=== PATIENT | female | born 1965 | race Asian ===

== ENCOUNTER 2019-03-17 04:24 | Inpatient (IN) | payer BC ==
[~2019-03-17] VITALS: Ht 160 cm; Wt 65.5 kg
[2019-03-17] MEDS ORDERED: SODIUM CHLORIDE 0.9% 1,000 ML IV ONE ×2 (05:30→08:00)
[2019-03-17] MEDS ORDERED: METOPROLOL TARTRATE 1MG/1ML-5ML VIAL IV ONE ×2 (06:15→08:15)
[2019-03-17 07:55] LABS: Basophils # (auto) 0 uL; Basophils % (auto) 0.9 % (0.0-2.0); Eosinophils # (auto) 0.2 uL; Eosinophils % (auto) 3.6 % (0.0-7.0); Hematocrit 40.3 % (36.0-46.0); Hemoglobin 13.3 g/dL (12.2-16.2); Lymphocytes # (auto) 1.9 uL; Lymphocytes % (auto) 34.3 % (10.0-50.0); Mean Corpuscular Hemoglobin 29.4 pg (28.0-32.0); Mean Corpuscular Hgb Conc. 33.2 g/dL (32.0-36.0); Mean Corpuscular Volume 88.7 fL (80.0-100.0); Monocytes # (auto) 0.4 uL; Monocytes % (auto) 7.2 % (0.0-12.0); Neutrophils # (auto) 3.1 uL; Nucleated Red Blood Cells % 0.1 %; Platelet Count (auto) 221 10^3/uL (140-450); Red Blood Cells 4.54 10^6/uL (4.0-5.20); Red Cell Distribution Width 13.1 % (11.8-14.3); White Blood Cell 5.7 10^3/uL (4.4-10.8)
[2019-03-17 07:59] LABS: INR 0.94 (0.9-1.15); Partial Thromboplastin Time 27.3 sec (23.64-32.05)
[2019-03-17 08:05] LABS: Albumin 3.6 g/dL (3.4-5.0); Calcium 8.4 mg/dL (8.5-10.1); Magnesium 2.4 mg/dL (1.6-2.6)
[2019-03-17 08:10] LABS: BUN/Creatinine Ratio 24.6; Bilirubin, Total 0.4 mg/dL (0.2-1.0); Total Protein 6.9 g/dL (6.4-8.2)
[2019-03-17] MEDS ORDERED: METOPROLOL TARTRATE 50 MG TAB PO ONE (08:30)
[2019-03-17] MEDS ORDERED: ASPirin 81 mg TAB PO ONE (09:30)
[2019-03-17] MEDS ORDERED: DILTIAZEM 125mg/125ml BAG KIT 125 ML IV SCH (09:30)
[2019-03-17] MEDS ORDERED: MORPHINE SULF INJ 2 MG/ML SYRINGE 1ML IV PRN ×2 (09:30)
[2019-03-17] MEDS ORDERED: HYDROcodone-ACET 5/325MG TAB PO PRN (09:30)
[2019-03-17] MEDS ORDERED: NITROGLYCERIN 0.4 MG SL TAB SL PRN (09:30)
[2019-03-17] MEDS ORDERED: ONDANSETRON HCL 4 MG/2 ML VIAL IV PRN (09:30)
[2019-03-17] MEDS ORDERED: ACETAMINOPHEN 500 MG TAB PO PRN (09:30)
[2019-03-17] MEDS: FAMOTIDINE 20 MG TAB PO SCH (09:50)
--- NOTE | 2019-03-17 11:45 | NUR ---
Admit to [facility] BENAVIDES admitted to [facility] via gurney on boiling tub operator, and patient is room air. Patient transferred to bed, connected to unit monitoring, and weighed by bedscale. Patient oriented to LATOSHA MARTINEZ RN primary RN, unit, room, bed, and unit policies regarding patient care and visiting hours. All questions and concerns addressed, patient verbalized understanding. Assessment done: vital sign : BP 107/71 mmHg, HR 56 with sinus bradycardia, room air O2 saturation 95-96%, skin intact, dry and warm to touch. IV at the left wrist.
[2019-03-17 11:55] VITALS: BP 107/71
[2019-03-17 12:00] VITALS: BP 107/71
--- NOTE | 2019-03-17 12:20 | NUR ---
Dr. Rodrigues at the bedside, seen and examined patient at this time, plan of care discussed with patient and her , they agreed with the plan, MD recommends to continue monitoring in the hospital, able to transfer to Tele, continue Metoprolol 12.5 mg oral BID, patient made aware. recommends EP and RF ablation with Dr. Rand at [facility], patient and his made aware, will continue to monitor and care.
--- NOTE | 2019-03-17 13:25 | NUR ---
Patient had 100 % of Lunch, no N/V noted.
--- NOTE | 2019-03-17 13:59 | NUR ---
Provided the information about SVT and cardiac ablation to patient and her .
--- NOTE | 2019-03-17 14:15 | NUR ---
RECEIVED REPORT FROM [facility] NURSE WILL WAIT PATIENT.
--- NOTE | 2019-03-17 14:15 | NUR ---
Called and give a report to Vicki JAVIER
--- NOTE | 2019-03-17 14:20 | NUR ---
Patient transferred to room 240B via wheelchair and connected to Tele no 5. Her taking her belonging with him.
--- NOTE | 2019-03-17 14:34 | NUR ---
RECEIVED PATIENT TO FLOOR AMBULATORY AWAKE ALERT AND ORIENTED X4 NO SIGNS AND SYMPTOMS OF DISTRESS NOTED. INSTRUCTED PATIENT ON THE PLAN OF CARE AND TO CALL IF ANYTHING IS NEEDED. WILL CONTINUE TO MONITOR Q HOURLY AND NEEDED.
[2019-03-17 17:00] VITALS: BP 102/63
--- NOTE | 2019-03-17 19:35 | NUR ---
Opening Shift Note Assumed care of patient, awake and alert. No S/S of distress/SOB or pain. Bed locked in lowest position, side rails upx2, call light within reach. Instructed on POC and to call for assist PRN, will continue to monitor for changes Q1hr and PRN.
[2019-03-17] MEDS: METOPROLOL TARTRATE 25 MG TAB PO SCH (22:00)
[2019-03-17] MEDS ORDERED: METOPROLOL TARTRATE 25 MG TAB PO SCH (22:00)
[2019-03-17 22:55] VITALS: BP 108/66
[2019-03-18 05:17] VITALS: BP 97/53
[2019-03-18 07:03] LABS: Basophils # (auto) 0 uL; Basophils % (auto) 1.1 % (0.0-2.0); Eosinophils # (auto) 0.2 uL; Eosinophils % (auto) 5.2 % (0.0-7.0); Hematocrit 35.9 % (36.0-46.0); Hemoglobin 11.9 g/dL (12.2-16.2); Lymphocytes # (auto) 1.8 uL; Lymphocytes % (auto) 43.6 % (10.0-50.0); Mean Corpuscular Hemoglobin 29.3 pg (28.0-32.0); Mean Corpuscular Hgb Conc. 33.1 g/dL (32.0-36.0); Mean Corpuscular Volume 88.4 fL (80.0-100.0); Monocytes # (auto) 0.3 uL; Monocytes % (auto) 8.5 % (0.0-12.0); Neutrophils # (auto) 1.7 uL; Neutrophils % (auto) 41.6 % (37.0-80.0); Nucleated Red Blood Cells % 0.1 %; Platelet Count (auto) 182 10^3/uL (140-450); Red Blood Cells 4.06 10^6/uL (4.0-5.20); Red Cell Distribution Width 12.7 % (11.8-14.3)
[2019-03-18 07:31] LABS: Calcium 8.7 mg/dL (8.5-10.1); Potassium 3.9 mmol/L (3.5-5.1)
[2019-03-18 07:33] LABS: BUN/Creatinine Ratio 23.6
[2019-03-18] MEDS: METOPROLOL TARTRATE 25 MG TAB PO SCH (09:29)
[2019-03-18] MEDS: FAMOTIDINE 20 MG TAB PO SCH (09:29)
[2019-03-18 10:00] VITALS: BP 126/67
[2019-03-18] MEDS ORDERED: ASPirin 81 mg TAB PO SCH (10:00)
--- NOTE | 2019-03-18 13:00 | NUR ---
PT SEEN BY DR. ARMAS PER DR. ARMAS HE SPOKE WITH DR. PACHECO PT IS CLEARED FOR DISCHARGE.
--- NOTE | 2019-03-18 13:30 | NUR ---
PER DR. ARMAS, IF PATIENT EXPERIENCES PALPITATIONS, PATIENT CAN TAKE 1 MORE OF 1/2 TAB METOPROLOL 12.5 MG. WILL INFORM DEONTE ELIAS WHEN SHE COMES BACK AFTER LUNCH.
[2019-03-18 13:41] VITALS: BP 117/35
[2019-03-18 14:20] VITALS: BP 126/67
--- NOTE | 2019-03-18 15:00 | NUR ---
PT INSTRUCTED TO TAKE ANOTHER 1/2 OF METOPROLOL PILL IF SHE EXPERIENCE PALPITATIONS, PT VERBALIZED UNDERSTANDING.
--- NOTE | 2019-03-18 15:45 | NUR ---
CALLED DR. PACHECO'S OFFICE, THEY WILL NOT TAKE PT'S INSURANCE, PT CAN FOLLOW UP AND WILL PAY OUT OF POCKET, PT MADE AWARE AND WILL CALL FOR HER APPOINTMENT.
--- NOTE | 2019-03-18 15:50 | NUR ---
Discharge instructions given as ordered. Encourage to follow up with PCP DR. BUSCH IN 1 WEEK IN [facility], PT STATED SHE WILL MAKE HER OWN APPOINTMENT as instructed. All questions and concerns addressed. Patient verbalized understanding. Medication reconciliation form completed and copy given to patient. IV removed with catheter intact, pressure dressing applied. Telemetry unit returned to ICU. Patient taken to vehicle via wheelchair with all personal belongings, accompanied by staff and family member. No distress noted at time of departure.
[2019-03-18] MEDS ORDERED: METOPROLOL TARTRATE 25 MG TAB PO SCH (22:00)
== END 2019-03-18 15:50 | disposition home or self-care (01) | DRG 309 ==
LOC: EDBD 04:24 → ER 04:24 → TELE 04:25 → DOU IN ICU 11:45 → TELE-EAST 14:20
PROVIDERS: ADMIT Nurse Practitioner Acute Care; ATTEND Internal Medicine
DX: I47.1 Supraventricular tachycardia (principal); D68.69 Other thrombophilia; R73.9 Hyperglycemia, unspecified; I48.92 Unspecified atrial flutter; Z82.3 Family history of stroke
CPT/HCPCS: 36415; 71045; 80048; 80053; 83735; 83880; 84443; 84484; 85025; 85379; 85610; 85730; 93306; 94761; 96361; 96374; G0378